=== PATIENT | female | born 1955 | race Caucasian/White ===

== ENCOUNTER → 2018-09-28 10:45 | Outpatient (CLI) | payer MEDICAID, SELFPAY ==
--- NOTE | 2018-09-28 11:10 | RAD_ITS ---
STUDY: X-RAY - LUMBAR SPINE REASON FOR EXAM: Female, 63 years old. Chronic low back pain. No recent injuries. TECHNIQUE: 5 view(s) of the lumbar spine were obtained. COMPARISON: None FINDINGS: Normal lumbar lordosis. There is no substantial scoliosis. There is a normal alignment of the vertebrae. Normal vertebral bodies and endplates. There is intervertebral disc space narrowing at L4-5 with subchondral sclerosis and small osteophytes. There is mild diffuse facet sclerosis. The soft tissue structures are unremarkable. RAD/L/S Spine Min 4 Views IMPRESSION: Mild lumbar spondylosis as described. Electronically Signed: Justin Broussard MD at 11:48 EDT , Service support ,
[2018-09-28 11:37] LABS: Absolute Lymphocyte Count 2.62 X10^3/ul (0.83-4.51); Absolute Neutrophil Count 4.5 X10^3/uL (2.0-7.7); Basophil# 0.05 X10^3/uL; Basophil% 0.6 % (0-1); Eosinophil# 0.23 X10^3/uL; Eosinophils% 2.9 % (0-5); Hematocrit 40.9 % (37-47); Hemoglobin 13.6 g/dl (12.0-15.0); Lymphocyte # 2.62 X10^3/ul (4.0); Lymphocyte % 33.4 % (19-41); Mean Corp Hgb Conc 33.3 g/gl (32-36); Mean Corpuscular Hgb 29.7 pg (27.0-32.0); Mean Corpuscular Volume 89.3 fL (81-99); Mean Platelet Vol. 9.6 fl (6.2-12.0); Monocyte# 0.47 X10^3/uL; Neutrophil # 4.47 X10^3/uL (2.7-7.7); Platelet Count 302 K/mm3 (150-450); RBC Distribution Width CV 14.2 % (11.6-14.6); RBC Distribution Width SD 46.6 fl (35.1-43.9); Red Blood Count 4.58 M/mm3 (4.2-5.4); White Blood Count 7.9 K/mm3 (4.4-11.0)
[2018-09-28 11:38] LABS: POSITIVE COUNT NO; POSITIVE DIFFERENTIAL NO; POSITIVE MORPHOLOGY NO
[2018-09-28 12:15] LABS: ALB/GLOB Ratio 1.2 RATIO (0.9-2.4); AST(SGOT) 22 U/L (15-37); Alanine Aminotransfer ALT/SGPT 19 U/L (13-56); Alkaline Phosphatase 96 U/L (45-117); Anion Gap 5 (5-15); BUN 8 mg/dL (7-18); Calcium,Total 8.8 mg/dL (8.5-10.1); Chloride 106 mmol/L (98-107); Cholesterol 225 mg/dL (200); Creatinine, Serum 0.73 mg/dL (0.55-1.02); EST Glomerular Filtration Rate 86 mL/min (>60); Est Glom Filt Rate - Afr Amer 105 mL/min (>60); Globulin 3.3 g/dL (2.2-4.2); Glucose 80 mg/dL (74-106); High Density Lipoprotein 74 mg/dL; Potassium 4.1 mmol/L (3.5-5.1); Protein, Total 7.3 g/dL (6.4-8.2); Sodium Level 137 mmol/L (136-145); Thyroid Stim Hormone (TSH) 1.46 uIU/mL (0.358-3.74); Triglycerides 77 mg/dL; Very Low Density Lipoprotein 15 mg/dL (5-40)
== END ==
PROVIDERS: Family Provider Family Medicine; PCP Family Medicine; Referring Provider Family Medicine
DX: M54.5 Low back pain (principal); R26.89 Other abnormalities of gait and mobility; G89.4 Chronic pain syndrome
CPT/HCPCS: 36415; 72110; 80053; 80061; 84443; 85025

== ENCOUNTER → 2018-10-24 12:45 | Outpatient (CLI) | payer OTHER, SELFPAY ==
--- NOTE | 2018-10-24 12:47 | BI_ITS ---
MAMMOGRAPHY - BILATERAL SCREENING REASON FOR EXAM: Female, 63 years old. Routine annual screening examination. PERTINENT HISTORY: Sister with breast cancer. Aunt with breast cancer. TECHNIQUE: Digital bilateral breast santy (3D mammographic acquisition) in the CC and MLO projections. 2-D mediolateral oblique (MLO) and craniocaudad (CC) views of both breasts were obtained. CAD: Full Field Digital Mammography with Computer Added Detection was performed. COMPARISON: Comparison is made with prior outside examination dated March 12, 2017. FINDINGS: Breast Composition: The breasts are heterogeneously dense, which may obscure small masses. There are no dominant masses or suspicious calcifications. Stable 5 mm benign appearing nodule in the inferior anterior lateral aspect of the right breast. No other significant abnormalities are identified. There has been no significant change since the prior study. BI/SCREENING MAMM (CAD), BILAT IMPRESSION: Stable bilateral screening mammogram. Yearly follow-up mammogram recommended. (A) ASSESSMENT CATEGORY: BIRADS Category 2: Benign. A letter regarding these results will be sent to the patient by the facility within 30 days. Approximately 10% of breast cancers are not detected by mammography. A normal mammogram should not delay biopsy of a clinically suspicious abnormality. [id number] Electronically Signed: Kailash Becerra, at 8:29 EDT , Service support ,
== END ==
PROVIDERS: Family Provider Family Medicine; PCP Family Medicine; Referring Provider Family Medicine; Visit Provider Family Medicine
DX: Z12.31 Encounter for screening mammogram for malignant neoplasm of breast (principal)
CPT/HCPCS: 77063; 77067

== ENCOUNTER → 2019-02-20 16:56 | Outpatient (CLI) | payer OTHER, SELFPAY ==
--- NOTE | 2019-02-20 17:04 | MRI_ITS ---
HISTORY:numbness/ tingling bilat legs MR Spine Lumbar W/O Contrast Technique:Sagittal T1-T2 and STIR and axial T1 and T2-weighted images # of images including paperwork:121 Comparison:Radiographs of lumbar spine obtained on September 28, 2018 Findings: Straightening of the normal lumbar lordosis Vertebral body heights are maintained The conus ends at the T12-L1 disc space and appears within normal limits. T12-L1: Disc height and hydration are preserved. There is no evidence of the disc contour abnormality or canal stenosis. No significant neural foraminal narrowing or nerve root impingement. L1-2: Disc height and hydration are preserved. There is no evidence of the disc contour abnormality or canal stenosis. No significant neural foraminal narrowing or nerve root impingement. L2-3:Disc desiccation. Minimal annular bulge. No canal stenosis or neural foraminal narrowing. No nerve root impingement L3-4: Disc height and hydration are preserved. There is no evidence of the disc contour abnormality or canal stenosis. There is facet arthrosis. Mild bilateral neural foraminal narrowing but no significant nerve impingement L4-5:Disc desiccation. Decreased disc space. Modic type II changes noted at the end plates. Trefoil appearance of the canal. There is also mild subarticular recess narrowing. Facet arthrosis. Posterior osteophytes and diffuse annular bulge. Mild bilateral neural foraminal narrowing. No significant nerve root impingement L5-S1:Minimal annular bulge. No canal stenosis. There is mild bilateral neural foraminal narrowing slightly greater on the left. 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 Trefoil appearance the canal as well as subarticular recess narrowing. No significant nerve impingement L5-S1 mild annular bulge with bilateral mild neural foraminal narrowing greater on the left no significant nerve impingement at [id number] Reported and signed by: Linnette Castillo DO Electronically Signed: Linnette Castillo DO at 21:18 EDT Tel , Service support ,
== END ==
LOC: MRI 16:57
PROVIDERS: Family Provider Family Medicine; PCP Family Medicine
DX: M54.5 Low back pain (principal)
CPT/HCPCS: 72148

== ENCOUNTER → 2019-03-20 12:41 | Outpatient (CLI) | payer OTHER, SELFPAY ==
--- NOTE | 2019-03-20 12:44 | RAD_ITS ---
STUDY: X-RAY CHEST REASON FOR EXAM: Female, 64 years old. Cough x2 week TECHNIQUE: PA and lateral views of the chest. COMPARISON: None. FINDINGS: There are interstitial fibrotic changes of the lungs. There is no demonstrated pleural abnormality. Normal size heart. Normal mediastinum and yvonne. Normal visualized pulmonary arteries. Normal visualized aortic arch and descending thoracic aorta. Normal visualized thoracic spine. Normal visualized ribs, clavicles, and shoulders. There is no demonstrated abnormality of the visualized soft tissue structures of the upper abdomen. RAD/Chest PA and Lateral IMPRESSION: No acute pulmonary process Electronically Signed: Naseem Burt MD at 13:39 EDT , Service support ,
== END ==
LOC: RAD 12:42
PROVIDERS: Family Provider Family Medicine; PCP Family Medicine; Referring Provider Family Medicine; Visit Provider Family Medicine
DX: R05 Cough (principal)
CPT/HCPCS: 71046

== ENCOUNTER → 2019-04-03 10:58 | Outpatient (CLI) | payer OTHER, SELFPAY | LOC: PSN 10:58 | PROVIDERS: Family Provider Family Medicine; PCP Family Medicine; Referring Provider Family Medicine; Visit Provider Family Medicine | DX: R42 Dizziness and giddiness (principal) | CPT/HCPCS: 93225; 93226 ==

== ENCOUNTER 2019-07-22 15:22 | Emergency (ER) | payer OTHER, SELFPAY ==
[2019-07-22 15:23] VITALS: BP 145/77; PULSE 85; RESP 16; TEMP 36.8; O2SAT 96; BMI 22.8
--- NOTE | 2019-07-22 15:42 | EKG12_ITS ---
Test Reason : LIGHT HEADED Blood Pressure : / mmHG Vent. Rate : 079 BPM Atrial Rate : 079 BPM P-R Int : 130 ms QRS Dur : 086 ms QT Int : 354 ms P-R-T Axes : 073 079 080 degrees QTc Int : 405 ms Normal sinus rhythm Normal ECG Confirmed by PAVEL DAVILA, [place] ([id number]), video news editor AKIKO GUZMAN ([id number]) on 07/26/2019 8:50:30 AM Referred By: COLLINS Confirmed By:CHINA ZHAO MD
--- NOTE | 2019-07-22 15:44 | ED.VIS.GEN ---
History of Present Illness Chief Complaint: General Illness Narrative: Presents with 4 days of generalized illness, lightheadedness, it started with subjective chills some myalgias and upper respiratory symptoms which have improved. Now she feels generalized weakness and lightheadedness. She did not get an influenza vaccine this year. She started having some loose stools yesterday. She denies any chest pain or shortness of breath she has no abdominal pain, she has no rash. There is no neck pain or stiffness. She tells me she is lightheaded she denies any vertigo or disequilibrium, lightheadedness is worse when she stands up. Past Medical History - Allergies and Home Meds Allergies/Adverse Reactions: Allergies No Known Allergies Allergy (Verified 07/22/19 15:23) Primary Care Physician: Liborio Almendarez MD [Primary Care Provider] - Past Medical History: None Smoking Status: Unknown if ever smoked Review of Systems General: Reports: Chills. Denies: Fever Eyes: Denies: Visual changes - bilaterally ENT: Reports: Rhinorrhea, Sore throat, - - These have improved Cardiovascular: Denies: Chest pain Respiratory: Reports: Cough. Denies: Dyspnea Gastrointestinal: Reports: Diarrhea. Denies: Abdominal pain, Nausea, Vomiting Genitourinary: Denies: Dysuria Musculoskeletal: Reports: Myalgias, - - Improved Skin: Denies: Rash Neurological: Reports: Weakness. Denies: Headache, Parasthesia Psych: Denies: Depression Hematologic: Denies: Easy bruising Allergy: Denies: Swelling of the mouth, Swelling of the tongue Physical Exam Vital Signs/Narrative: Vital Signs Temp Pulse Resp BP Pulse Ox 07/22/19 15:23 98.3 F 85 16 145/77 H 96 General: Well nourished, Well developed Eyes: Perrl, EOMI ENT: Moist mucous membranes, TM's clear, Dry mucous membranes, Nasal congestion Cardiovascular: Regular rate, Regular rhythm Respiratory: No distress, CTA bilaterally Abdomen: Soft, Nontender, Nondistended Back: Nontender, Normal Inspection. Negative for: CVA tenderness Extremities: Nontender, No edema Skin: Normal color, No rash Neurological: Alert, Oriented x3 Psychological: Normal affect Diagnostic/Tx/Re-eval - Rhythm Strip Rhythm Strip: Sinus Rhythm Rate: 79 Ectopy: None - EKG Initial EKG Interpretation: - - Normal sinus rhythm with a rate of 79. Normal KS and QTc intervals. No ischemic changes. Interpreted by emergency doctor - Medical Decision Making Patient is found to have influenza, she is hydrated and she improved. She is 4 days from the onset of her symptoms that she does not meet criteria for Tamiflu. She has no prior medical problems and she is healthy, she is likely to have a full recovery relatively soon. If anything changes and she becomes sicker she will return. She is especially told about post influenza pneumonia which would be about a week after influenza and she would have high fevers and shortness of breath she is told that this could be deadly and if she gets any signs or symptoms she is to return right away she understands that. ED Disposition - Plan for ED Patient: Disposition: Home or Assisted Living Diagnosis: Influenza Instructions: Influenza Referrals: Liborio Almendarez MD [Primary Care Provider] - 3-5 Days
--- NOTE | 2019-07-22 15:55 | RAD_ITS ---
STUDY: X-RAY CHEST REASON FOR EXAM: Female, 64 years old. COUGH TECHNIQUE: Single AP portable view of the chest. COMPARISON: Prior study of 03/20/2019 FINDINGS: The lungs are clear and expanded. There is no demonstrated pleural abnormality. Normal size heart. Normal mediastinum and yvonne. Normal visualized pulmonary arteries. There are calcified plaques of the aortic arch. Normal visualized thoracic spine. Normal visualized ribs, clavicles, and shoulders. There is no demonstrated abnormality of the visualized soft tissue structures of the upper abdomen. RAD/Chest 1 View (Portable) IMPRESSION: Calcified plaques of the aortic arch. No acute cardiopulmonary disease process is seen. Chest findings are stable in the interval. Electronically Signed: Tj Mckeon MD at 16:18 EST , Service support ,
[2019-07-22 16:09] LABS: Absolute Lymphocyte Count 1.57 X10^3/uL (0.83-4.51); Absolute Neutrophil Count 4.8 X10^3/uL (2.0-7.7); Basophil# 0.01 X10^3/uL; Basophil% 0.1 % (0-1); Eosinophil# 0.01 X10^3/uL; Eosinophils% 0.1 % (0-5); Hematocrit 42.6 % (37-47); Hemoglobin 13.9 g/dL (12.0-15.0); Lymphocyte # 1.57 X10^3/ul (4.0); Lymphocyte % 22.3 % (19-41); Mean Corp Hgb Conc 32.6 g/dL (32-36); Mean Corpuscular Hgb 29.3 pg (27.0-32.0); Mean Corpuscular Volume 89.7 fL (81-99); Mean Platelet Vol. 9.6 fl (6.2-12.0); Monocyte# 0.66 X10^3/uL; Monocyte% 9.4 % (0-10); NRBC Flagged by Analyzer 0 % (0-5); Neutrophil # 4.75 X10^3/uL (2.7-7.7); Neutrophil % 67.5 % (47-70); Platelet Count 193 K/mm3 (150-450); RBC Distribution Width CV 13.5 % (11.6-14.6); RBC Distribution Width SD 44.7 fl (35.1-43.9); Red Blood Count 4.75 M/mm3 (4.2-5.4)
[2019-07-22] MEDS: 0.9% Normal Saline 1,000 ML 1000 ML IV (16:15)
[2019-07-22 16:21] LABS: White Blood Cells 0 SEEN /hpf (0-5)
[2019-07-22 16:22] LABS: Color, Urine Yellow (Yellow); Glucose, Dipstick Normal (Normal); Ketone-Dipstick Negative (Negative); Leukocyte Esterase-Dipstick Negative /ul (Negative); Nitrite-Dipstick Negative (Negative); Occult Blood-Urine 150 /ul (Negative); Protein-Dipstick 15 mg/dl (Negative); Urine Bilirubin Dipstick Negative (Negative); Urine Clarity Clear (Clear); Urine Urobilinogen 1 mg/dl (Normal)
[2019-07-22 16:28] LABS: ALB/GLOB Ratio 0.9 RATIO (0.9-2.4); AST(SGOT) 25 U/L (15-37); Alanine Aminotransfer ALT/SGPT 23 U/L (13-56); Albumin, Serum 3.5 g/dL (3.2-5.0); Alkaline Phosphatase 74 U/L (45-117); Anion Gap 4 (5-15); BUN 8 mg/dL (7-18); BUN/Creat Ratio 10.6 RATIO (10-20); Calcium,Total 8.6 mg/dL (8.5-10.1); Chloride 101 mmol/L (98-107); Creatinine, Serum 0.75 mg/dL (0.55-1.02); EST Glomerular Filtration Rate 83 mL/min (>60); Est Glom Filt Rate - Afr Amer 100 mL/min (>60); Estimated Creatinine Clearance 78.46 ml/min; Globulin 3.7 g/dL (2.2-4.2); Glucose 101 mg/dL (74-106); Protein, Total 7.2 g/dL (6.4-8.2); Sodium Level 133 mmol/L (136-145)
[2019-07-22 16:35] LABS: Bacteria 1+ /hpf (None Seen); Squamous Epithelial Cells - UA 0-5 SEEN /hpf (5-10)
[2019-07-22 16:36] LABS: Mucous, Urine RARE /hpf (<or=2+); Red Blood Cells-Urine 5-10 SEEN /hpf (0-5)
[2019-07-22 17:09] VITALS: RESP 16; O2SAT 97
== END 2019-07-22 17:10 | disposition home or self-care (01) ==
PROVIDERS: Emergency Provider Emergency Medicine; PCP Family Medicine
DX: J11.1 Influenza due to unidentified influenza virus with other respiratory manifestations (principal)
CPT/HCPCS: 71045; 80053; 81001; 84484; 85025; 87804; 93005; 96360; 99283; J7030; A4216